=== PATIENT | female | born 1990 | race Caucasian/White ===

== ENCOUNTER 2016-12-16 18:41 | Emergency (ER) | payer MEDICAID, OTHER ==
[~2016-12-16] VITALS: Ht 160 cm; Wt 54.4 kg
[2016-12-16 18:41] VITALS: BP 117/71
[2016-12-16] MEDS ORDERED: ACETAMINOPHEN 325 MG TABLET PO STA (20:36)
[2016-12-16] MEDS ORDERED: IBUPROFEN 600 MG TABLET PO STA (20:36)
[2016-12-16] MEDS ORDERED: DOCUSATE SODIUM LIQ 100 MG/10 ML UDC PO STA (20:37)
[2016-12-16] MEDS ORDERED: DOCUSATE SODIUM LIQ 100 MG/10 ML UDC ONE (20:46)
[2016-12-16] MEDS ORDERED: IBUPROFEN 600 MG TABLET PO ONE (20:46)
[2016-12-16] MEDS ORDERED: ACETAMINOPHEN 325 MG TABLET ONE (20:46)
== END 2016-12-16 21:09 | disposition home or self-care (01) ==
LOC: ER 18:44
DX: K64.9 Unspecified hemorrhoids (principal)
CPT/HCPCS: 99284; A4606; Z7610

== ENCOUNTER 2020-07-28 22:29 | Emergency (ER) | payer MEDICAID ==
[~2020-07-28] VITALS: Ht 160 cm; Wt 52.2 kg
[2020-07-28 22:45] VITALS: BP 103/66
--- NOTE | 2020-07-28 22:48 | NUR ---
urine collected. sent to lab
[2020-07-28] MEDS ORDERED: SULF1TAB48 PO (23:03)
[2020-07-28] MEDS ORDERED: IBUP-1957 PO (23:03)
[2020-07-28 23:08] LABS: BILIRUBIN,URINE NEGATIVE (NEGATIVE); COLOR,URINE YELLOW (YELLOW); LEUKOCYTE ESTERASE ,URINE NEGATIVE (NEGATIVE); NITRITE, URINE NEGATIVE (NEGATIVE); PH,URINE 7.5 (5.0-8.0); PROTEIN,URINE NEGATIVE (NEGATIVE); UGLUCOSE NEGATIVE (NEGATIVE); UROBILINOGEN,URINE 0.2 EU/dL (0.2)
[2020-07-28 23:15] LABS: BACTERIA,URINE Few /HPF (None Seen); SQUAMOUS EPITHELIAL CELL,UR Few /HPF (None Seen); WBC,URINE 21-50 /HPF (0-3)
--- NOTE | 2020-07-28 23:26 | NUR ---
PT is medically stable for D/C. Patient discharged to home in stable condition. Rx and Written and verbal after care instructions given. Patient verbalizes understanding of instruction.
== END 2020-07-28 23:28 | disposition home or self-care (01) ==
LOC: ER 22:32
DX: N39.0 Urinary tract infection, site not specified (principal); Z79.899 Other long term (current) drug therapy
CPT/HCPCS: 81001; 84703-TC; 87086-TC

== ENCOUNTER 2020-08-04 15:10 | Emergency (ER) | payer MEDICAID ==
[~2020-08-04] VITALS: Ht 160 cm; Wt 52.2 kg
[~2020-08-04 15:10] MED LIST: IBUP-1957 PO; SULF1TAB48 PO
--- NOTE | 2020-08-04 15:24 | NUR ---
"Tripped over luggage yesterday hit my head-bruise/bump. NO LOC". Rates headache 07/04. Denies SOB. Respiration regular and unlabored. Will continue to monitor the patient.
[2020-08-04] MEDS ORDERED: IBUP-1955 PO (16:11)
[2020-08-04 16:16] VITALS: BP 112/64
== END 2020-08-04 16:16 | disposition home or self-care (01) ==
LOC: ER 15:10
DX: S06.0X0A Concussion without loss of consciousness, initial encounter (principal); S00.03XA Contusion of scalp, initial encounter; R51.9 Headache, unspecified; Z98.890 Other specified postprocedural states; Z79.899 Other long term (current) drug therapy; W22.8XXA Striking against or struck by other objects, initial encounter; Y93.89 Activity, other specified; Y92.89 Other specified places as the place of occurrence of the external cause; Y99.8 Other external cause status
CPT/HCPCS: 70450-TC

== ENCOUNTER 2020-09-04 11:44 | Emergency (ER) | payer MEDICAID ==
[~2020-09-04] VITALS: Ht 160 cm; Wt 52.2 kg
[~2020-09-04 11:44] MED LIST changes: +IBUP-1955 PO
--- NOTE | 2020-09-04 12:08 | NUR ---
THE PATIENT IS ALERT AND ORIENTED X4. PRESENRTED TO ER FOR C/O ABD. CRAMPING & VAGINAL BLEEDING, + TEST YESTERDAY. RATES PAIN 4/10. THE PATIENT IS IN ER BED #16. WILL CONTINUE TO MONITOR THE PATIENT.
[2020-09-04] MEDS ORDERED: ACETAMINOPHEN ES 500 MG TABLET ONE (12:26)
[2020-09-04] MEDS ORDERED: ACETAMINOPHEN ES 500 MG TABLET PO ONE (12:30)
--- NOTE | 2020-09-04 12:35 | NUR ---
PT SCHEDULED TO GO FOR US PELVIC.
[2020-09-04 12:41] LABS: BASOPHILS % (AUTO) 0.2 % (0.0-2.0); EOSINOPHILS % (AUTO) 1.6 % (0.0-6.0); HEMATOCRIT 36 % (33-45); LYMPHOCYTES % (AUTO) 28.4 % (20.0-44.0); MEAN CORPUSCULAR HGB CONC 33 g/dl (31.0-36.0); MEAN CORPUSCULAR VOLUME 88 fL (82-100); MONOCYTES # (AUTO) 0.3 /CMM (0.1-1.30); NEUTROPHILS # (AUTO) 4.5 /CMM (1.8-8.9); NEUTROPHILS % (AUTO) 64.8 % (43.0-81.0); PLATELET COUNT (AUTO) 343 /CMM (150-450)
[2020-09-04 12:50] LABS: BILIRUBIN,URINE Negative (NEGATIVE); COLOR,URINE YELLOW (YELLOW); LEUKOCYTE ESTERASE ,URINE Small (NEGATIVE); NITRITE, URINE Negative (NEGATIVE); PROTEIN,URINE Negative (NEGATIVE); UGLUCOSE Negative (NEGATIVE); UROBILINOGEN,URINE 0.2 EU/dL (0.2)
[2020-09-04 12:52] LABS: CALCIUM, SERUM 8.8 mg/dL (8.5-10.1); CREATININE 0.5 mg/dL (0.6-1.3); POTASSIUM 3.7 mmol/L (3.5-5.1)
[2020-09-04 13:01] LABS: BACTERIA,URINE None seen /HPF (None Seen); RBC,URINE 15-25 /HPF (0-2)
--- NOTE | 2020-09-04 13:01 | NUR ---
PATIENT REFUSED TO HAVE TRANSVAGINAL US PER US TECH.
--- NOTE | 2020-09-04 13:30 | NUR ---
Patient discharged to home in stable condition. Written and verbal after care instructions given. Patient verbalizes understanding of instruction.
[2020-09-04 13:31] VITALS: BP 109/67
== END 2020-09-04 13:31 | disposition home or self-care (01) ==
LOC: ER 11:47
DX: O20.0 Threatened abortion (principal); Z88.1 Allergy status to other antibiotic agents; Z3A.00 Weeks of gestation of pregnancy not specified
CPT/HCPCS: 36415; 76805-TC; 80048-TC; 81001; 84702-TC; 85025-TC; 87086-TC

== ENCOUNTER 2021-05-13 19:07 | Emergency (ER) | payer MEDICAID ==
[~2021-05-13] VITALS: Ht 157.5 cm; Wt 52.2 kg
--- NOTE | 2021-05-13 19:21 | NUR ---
[id number] FOR R KNEE LACERATION S/P GLF AT [employer]. STS UTD W/ TDAP. ALERT AND ORIENTED X 4 BREATHING EVEN AND UNLABORED. CHANGED INTO GOWN AND ALL V/S STABLE.
[2021-05-13] MEDS ORDERED: HYDROCODONE/APAP 5/325MG TABLET ONE (19:48)
[2021-05-13] MEDS ORDERED: LIDOCAINE 1%-EPI 1:100,000 20 ML VIAL ONE (19:59)
[2021-05-13] MEDS ORDERED: LIDOCAINE 1%-EPI 1:100,000 20 ML VIAL TP ONE (20:00)
[2021-05-13] MEDS ORDERED: HYDROCODONE/APAP 5/325MG TABLET PO ONE (20:00)
--- NOTE | 2021-05-13 20:02 | NUR ---
WOUND CARE PERFORMED AT BEDSIDE
--- NOTE | 2021-05-13 21:39 | NUR ---
Patient discharged to home in stable condition. Written and verbal after care instructions given. Patient verbalizes understanding of instruction.
[2021-05-13 21:41] VITALS: BP 107/63
== END 2021-05-13 21:41 | disposition home or self-care (01) ==
LOC: ER 19:08
DX: S81.011A Laceration without foreign body, right knee, initial encounter (principal); Z88.1 Allergy status to other antibiotic agents; W18.39XA Other fall on same level, initial encounter; Y93.89 Activity, other specified; Y92.89 Other specified places as the place of occurrence of the external cause; Y99.8 Other external cause status
CPT/HCPCS: 12002; 73564; 99283; A6403; J3490

== ENCOUNTER 2021-05-16 15:09 | Emergency (ER) | payer MEDICAID ==
[~2021-05-16] VITALS: Ht 157.5 cm; Wt 52.2 kg
[2021-05-16 15:23] VITALS: BP 102/66
--- NOTE | 2021-05-16 16:24 | NUR ---
URINE COLLECTED AND SENT TO LAB
--- NOTE | 2021-05-16 16:40 | NUR ---
WOUND CHECK, KNEE PAIN. NO S/S INFECTION NOTED. WILL CONTINUE TO MONITOR THE PATIENT.
--- NOTE | 2021-05-16 17:52 | NUR ---
Patient discharged to home in stable condition. Written and verbal after care instructions given. Patient verbalizes understanding of instruction.
== END 2021-05-16 17:52 | disposition home or self-care (01) ==
LOC: ER 15:11
DX: S81.011D Laceration without foreign body, right knee, subsequent encounter (principal); Z88.1 Allergy status to other antibiotic agents; X58.XXXD Exposure to other specified factors, subsequent encounter
CPT/HCPCS: 73564-TC; 84703-TC

== ENCOUNTER 2021-10-16 20:43 | Emergency (ER) | payer MEDICAID ==
[~2021-10-16] VITALS: Ht 157.5 cm; Wt 49.9 kg
--- NOTE | 2021-10-16 23:57 | NUR ---
BIBS. TO ER BED 7. AAOX4. NO TIN RESP DISTRESS, BREATHING EVEN AND UNLABORED. AMBULATORY. CAME IN FOR SORETHROAT, FEVER AND BILAT EYE IRRIATATION. PER PT EYE ISSUES STARTED 1 WEEK AGO. PT NOTED WITH 100.0 ORAL TEMP.
[2021-10-17] MEDS ORDERED: ACETAMINOPHEN 325 MG TABLET PO ONE (00:30)
[2021-10-17] MEDS ORDERED: PENICILLIN G BENZATHINE 2.4 MMU/4 ML ML IM ONE ×2 (00:30→01:25)
[2021-10-17] MEDS ORDERED: ACETAMINOPHEN 325 MG TABLET ONE (01:24)
[2021-10-17] MEDS ORDERED: CHLO4TAB36 PO (03:41)
[2021-10-17] MEDS ORDERED: ACET-2605 PO (03:41)
--- NOTE | 2021-10-17 03:53 | NUR ---
Patient discharged to home in stable condition. Written and verbal after care instructions given. Patient verbalizes understanding of instruction. Pt ambulatory with a steady gait
[2021-10-17 03:55] VITALS: BP 109/66
== END 2021-10-17 03:56 | disposition home or self-care (01) ==
LOC: ER 21:05
DX: O98.811 Other maternal infectious and parasitic diseases complicating pregnancy, first trimester (principal); J06.9 Acute upper respiratory infection, unspecified; B96.89 Other specified bacterial agents as the cause of diseases classified elsewhere; O99.511 Diseases of the respiratory system complicating pregnancy, first trimester; J02.8 Acute pharyngitis due to other specified organisms; Z3A.01 Less than 8 weeks gestation of pregnancy; Z88.1 Allergy status to other antibiotic agents
CPT/HCPCS: 99283; 87426; 96372; 87804; J0558; C9803